=== PATIENT | male | born 1955 | race Caucasian/White ===

== ENCOUNTER 2016-08-03 17:34 | Emergency (ER) | payer OTHER ==
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
[2016-08-03 18:43] VITALS: BP 133/77
== END 2016-08-03 18:45 | disposition home or self-care (01) ==
LOC: ER 17:34
DX: S63.91XA Sprain of unspecified part of right wrist and hand, initial encounter (principal); S16.1XXA Strain of muscle, fascia and tendon at neck level, initial encounter; S39.012A Strain of muscle, fascia and tendon of lower back, initial encounter; S50.11XA Contusion of right forearm, initial encounter; V49.50XA Passenger injured in collision with unspecified motor vehicles in traffic accident, initial encounter; M54.2 Cervicalgia; M79.641 Pain in right hand; M25.521 Pain in right elbow; M54.5 Low back pain; R20.2 Paresthesia of skin
CPT/HCPCS: 99284